=== PATIENT | female | born 1990 | race American Indian/Alaskan Native ===

== ENCOUNTER 2017-12-11 08:01 | Outpatient (CLI) | payer OTHER ==
--- NOTE | 2017-12-11 08:43 | XRay Report ---
RIGHT KNEE RADIOGRAPHS INDICATION: Right knee pain. COMPARISON: None similar at this institution. FINDINGS: Standing AP, lateral, oblique and sunrise views of the right knee demonstrate intact articulation. No suprapatellar effusion. Borderline patella jennifer may though be correlated for clinically with an Insall-Salvati ratio of 1.4 and a modified Insall-Salvati ratio of 1.8 CONCLUSION: Possible patella jennifer. Please correlate. Thank you for the opportunity to participate in this patient's care.
== END 2017-12-11 08:02 | disposition home or self-care (01) ==
LOC: SPVIMAG 08:01
PROVIDERS: ATTEND Orthopaedic Surgery
DX: M25.561 Pain in right knee (principal)